=== PATIENT | female | born 2000 | race Caucasian/White ===

== ENCOUNTER 2022-04-26 16:19 | Outpatient (CLI) | payer OTHER ==
[2022-04-26] MEDS ORDERED: PRENATAL TABLE1 EAC3 PO (16:27)
== END 2022-04-27 14:44 | disposition home or self-care (01) ==
LOC: OBS/DEL 16:19
PROVIDERS: ATTEND Obstetrics & Gynecology
DX: O26.892 Other specified pregnancy related conditions, second trimester (principal); R10.2 Pelvic and perineal pain; Z3A.20 20 weeks gestation of pregnancy